=== PATIENT | female | born 1975 ===

== ENCOUNTER 2018-01-09 21:14 | Emergency (ER) | payer OTHER ==
[~2018-01-09] VITALS: Ht 157.5 cm; Wt 72.6 kg
[2018-01-09] MEDS ORDERED: ZOLOFT20 MG/1 ML (21:28)
[2018-01-09] MEDS ORDERED: INDERAL LA80 MG (21:29)
== END 2018-01-10 01:35 | disposition home or self-care (01) ==
LOC: ER 21:14
DX: E16.1 Other hypoglycemia (principal); R19.7 Diarrhea, unspecified

== ENCOUNTER 2021-12-30 10:07 | Outpatient (CLI) | payer OTHER ==
[~2021-12-30 10:07] MED LIST: INDERAL LA80 MG; ZOLOFT20 MG/1 ML
== END 2021-12-30 10:16 | disposition home or self-care (01) ==
LOC: SONOGRAMA 10:07
PROVIDERS: ATTEND Pathology Anatomic Pathology & Clinical Pathology
DX: E04.2 Nontoxic multinodular goiter (principal)

== ENCOUNTER 2023-11-16 09:40 | Outpatient (CLI) | payer OTHER | END 2023-11-17 09:42 | disposition home or self-care (01) | LOC: SONOGRAMA 09:40 | PROVIDERS: ATTEND Pathology Anatomic Pathology & Clinical Pathology | DX: D34 Benign neoplasm of thyroid gland (principal); E07.89 Other specified disorders of thyroid; E04.2 Nontoxic multinodular goiter ==